=== PATIENT | male | born 1945 | race Two or more races ===

== ENCOUNTER 2022-11-13 16:17 | Emergency (ER) | payer OTHER ==
[~2022-11-13] VITALS: Ht 170.2 cm; Wt 68.5 kg
[2022-11-13] MEDS ORDERED: ATORVASTATIN CA20 MG PO (17:53)
[2022-11-13] MEDS ORDERED: COZAAR25 MG PO (17:54)
[2022-11-13] MEDS ORDERED: CIPRO500 MG PO (20:27)
== END 2022-11-13 21:01 | disposition home or self-care (01) ==
LOC: ER 16:17
DX: R53.81 Other malaise (principal); R50.9 Fever, unspecified; R42 Dizziness and giddiness; N39.0 Urinary tract infection, site not specified; Z20.822 Contact with and (suspected) exposure to COVID-19